=== PATIENT | female | born 1985 | race Native Hawaiian/Other Pacific Islander ===

== ENCOUNTER 2016-11-29 20:48 | Inpatient (IN) | payer OTHER ==
[2016-11-29 21:10] VITALS: BMI 40.0
[2016-11-29] MEDS ORDERED: PENICILLIN G POTASSIUM 5 MMU in NS 0.9% (MINI-BAG PLUS) 100 ML IV ONE (21:18)
[2016-11-29] MEDS ORDERED: OXYTOCIN IN LR 500 ML IV ONE (21:18)
[2016-11-29] MEDS ORDERED: LACTATED RINGERS 1,000 ML IV PRN (21:18)
[2016-11-29] MEDS ORDERED: OXYTOCIN 10 UNITS/ML VIAL ONE (21:30)
[2016-11-29] MEDS ORDERED: IV START KIT ONE (21:30)
[2016-11-29] MEDS ORDERED: MINERAL OIL 25 ML BOT ONE (21:31)
[2016-11-29] MEDS ORDERED: LIDOCAINE Viscous 2% 15 ML UDCUP ONE (21:31)
[2016-11-29] MEDS ORDERED: LIDOCAINE 1% (PRES FREE) 30 ML VIAL ONE (21:31)
[2016-11-29] MEDS ORDERED: PUMP TUBING ONE (21:31)
[2016-11-29] MEDS ORDERED: PENICILLIN G POTASSIUM 5 MMU VIAL ONE (21:49)
[2016-11-29] MEDS ORDERED: NS 0.9% (MINI-BAG PLUS) 100 ML IV ONE (21:49)
[2016-11-29 21:58] LABS: HEMATOCRIT 39.3 % (37.0-47.0); HEMOGLOBIN 13.1 gm/l (12.0-16.0); MEAN CELL VOLUME 88.3 fl (81.0-99.0); MEAN CORPUSCULAR HEMOGLOBIN 29.4 pg (27.0-31.0); MEAN CORPUSCULAR HGB CONC 33.3 g/dl (33.0-37.0); RED CELL DISTRIBUTION WIDTH 13.4 % (11.5-14.5)
--- NOTE | 2016-11-29 22:32 | PCMAN ---
OB Admission Note - History : 3 Term: 1 : 1 Abortions (S&E): 0 Livin EDC:: 12/01/16 Gestational Age (weeks): 39 Days (#/7): 5 Admit Cervical Dilation:: 3 Admit Cervical Effacement (%):: 70 Admit Station:: -3 Membrane Status: Ruptured Rupture (Date): 11/29/16 Rupture (Time): 19:30 Membranes Comment:: Meconium Labor Onset (Date): 11/29/16 Labor Onset (Time): 20:00 Contractions: Yes Contraction Frequency:: q4-5 min Heart Rate:: 130 (mod anna, no decels) EFW:: 3500 Summary of Course:: 31yo , at 39+5, admitted with SROM and mathieu q4-5 min, mod intensity upon eval in [facility]BC - grossly ruptured with meconium noted cx=/-3 course - pt had migraines this high 1hr gtt, 3hr gtt wnl 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
--- NOTE | 2016-11-30 01:24 | PCMDEL ---
Delivery Note - Delivery Delivery (Date): 11/30/16 Delivery (Time): 01:11 Gender: Female Presentation: Cephalic Position: OA Umbilical Cord: 3 Vessel Delayed Cord Clamping:: < 1-2 min Placenta:: complete EBL:: 100 Perineum:: intact Comments:: Pt progressed well to FD/100/+2. Pt started pushing and delivered to LITTLE. Shoulders delivered easily. Bulb suction applied to mouth / nares. Baby to abdomen. After brief delay and milking, cord was clamped and cut. Cord bloods collected. Placenta delivered complete with 3VC. No lacerations. EBL 100cc Uterine massage applied.
[2016-11-30] MEDS ORDERED: PENICILLIN G 3 MIL UNIT PREMIX 3 MMU in Premix (D5W) 50 ml 1 EACH IV SCH (01:30)
[2016-11-30] MEDS ORDERED: LACTATED RINGERS 1,000 ML IV PRN (01:50)
[2016-11-30] MEDS ORDERED: LANOLIN 50 APPLIC/7G TUBE TP PRN (01:50)
[2016-11-30] MEDS ORDERED: BENZOCAINE/MENTHOL 60 APPLIC/BOT TP PRN (01:50)
[2016-11-30] MEDS: OXYCODONE/ACETAMINOPHEN 5/325 MG TABLET PO PRN ×2 (02:12→08:44)
[2016-11-30] MEDS: IBUPROFEN 800 MG TABLET PO PRN ×4 (02:12→22:04)
--- NOTE | 2016-11-30 06:48 | PDOC44 ---
- Subjective Day: 0 (feels great, nursing well) Reports Flatus, Reports Pain Tolerable, Reports , Reports Lochia Light, Reports Tolerating Regular Diet, Denies Nausea, Denies Vomiting, Denies Fever - Objective Temp Pulse Resp BP Pulse Ox 98.2 F 99 15 113/57 11/30/16 05:24 11/30/16 05:24 11/30/16 05:24 11/30/16 05:24 Lab Results 11/29/16 21:45 WBC 11.8 H RBC 4.45 Hgb 13.1 Hct 39.3 Plt Count 289 Current Medications Generic Name Dose Route Start Last Admin Trade Name Freq PRN Reason Stop Dose Admin Benzocaine/Menthol 1 applic 11/30/16 01:50 Dermoplast TP PRN PRN Patient Comfort Docusate Sodium 100 mg 11/30/16 01:50 Colace PO DAILY PRN Comfort Emollient Ointment 1 applic 11/30/16 01:50 [id number] TP PRN PRN sore nipples Lactated Ringer's 1,000 mls @ 100 mls/hr 11/30/16 01:50 Lactated Ringers IV .Q10H PRN Titrate per clinical situation Ibuprofen 800 mg 11/30/16 01:50 11/30/16 02:12 Motrin PO 800 mg Q6H PRN Administration Pain (Mild) Oxycodone/Acetaminophen 1 - 2 tab 11/30/16 01:50 11/30/16 02:12 Percocet 5/325 PO 1 tab Q4H PRN Administration Pain (Moderate) Sodium Chloride 10 ml 11/30/16 01:50 Normal Saline 10ml Flush IV PRN PRN IV Flush - Physical Exam General: Afebrile, No Acute Distress Psych/Mental Status: Mood/Affect Appropriate, Judgment/Insight Intact, Bonding Well Breast: Soft, Skin intact, Erythema, Nipples Intact, No Tenderness, No Engorged Fundus: Firm, Midline, At Umbilicus, Other (nontender) Genitourinary: Other (voiding without difficulty) Lochia: Light (nontender) Extremities: No Tenderness Disposition: Stable
[2016-11-30] MEDS: DOCUSATE SODIUM 100 MG CAPSULE PO PRN (08:44)
[2016-12-01 06:42] LABS: HEMATOCRIT 39.9 % (37.0-47.0); HEMOGLOBIN 12.9 gm/l (12.0-16.0)
[2016-12-01] MEDS: DOCUSATE SODIUM 100 MG CAPSULE PO PRN (07:47)
[2016-12-01] MEDS: IBUPROFEN 800 MG TABLET PO PRN (07:47)
[2016-12-01 07:55] VITALS: BP 127/79
--- NOTE | 2016-12-01 08:35 | PDOC39B ---
Hospital Course: ADMIT DATE: 11/29/16 DISCHARGE DATE: 12/01/16 ADMISSION DIAGNOSES: intrauterine at 39.5 weeks, labor, spontaneous rupture of membranes PROCEDURES: vaginal delivery HISTORY OF PRESENT ILLNESS: 31 year old G3 T1 L2 at 39 weeks 6 days presenting spontaneous rupture of membranes and active labor. HOSPITAL COURSE: The patient had an uneventful post course. By day of discharge the patient is ambulating, eating, voiding, and passing flatus without difficulty. Pain is controlled and lochia is appropriate. She is [] - Physical Exam Vital Signs: Temp Pulse Resp BP Pulse Ox 98.2 F 67 18 127/79 12/01/16 07:50 12/01/16 07:50 12/01/16 07:50 12/01/16 07:50 General: Afebrile, No Acute Distress Psych/Mental Status: Mood/Affect Appropriate, Judgment/Insight Intact, Bonding Well Breast: Soft, Skin intact, Nipples Intact, No Tenderness, No Erythema, No Engorged Fundus: Firm, Midline, Below Umbilicus, Other (nontender) Genitourinary: Other (voiding without difficulty) Lochia: Light Extremities: No Tenderness - Discharge Plan Condition: Stable Disposition: Home Additional Instructions: nothing in vagina x 6 weeks, office visit [address] gee, analgesics as needed Prescriptions: Ibuprofen [Motrin] 800 mg PO Q8H PRN #30 tablet PRN Reason: Pain Oxycodone HCl/Acetaminophen [PERCOCET 5/325 MG TABLET (SHF)] 1 - 2 tab PO Q4H PRN #14 tablet PRN Reason: Pain (Moderate)
== END 2016-12-01 13:51 | disposition home or self-care (01) | DRG 775 ==
LOC: FBCOUT 20:48 → FBC 20:48 → FBCOUT 21:18 → FBC 21:18
PROVIDERS: ADMIT Obstetrics & Gynecology; ATTEND Obstetrics & Gynecology
PROC: 10E0XZZ Delivery of Products of Conception, External Approach (ICD-10-PCS; principal; 2016-11-30)
DX: O99.824 Streptococcus B carrier state complicating childbirth (principal); O77.0 Labor and delivery complicated by meconium in amniotic fluid; Z3A.39 39 weeks gestation of pregnancy; Z37.0 Single live birth